=== PATIENT | male | born 1985 | race Caucasian/White ===

== ENCOUNTER 2020-03-14 12:56 | Emergency (ER) | payer BC, SELFPAY ==
[2020-03-14 12:57] VITALS: BP 110/82; PULSE 64; RESP 19; TEMP 36.5; O2SAT 100; BMI 28.4
--- NOTE | 2020-03-14 13:01 | ED.DCSUM_ITS ---
History of Present Illness Chief Complaint: Allergic Reaction Informant: Patient Onset: Hours - 1, or less Context: Sudden Onset - about 2-3 min after being stung back of right shoulder by a bee, pt thinks was a wasp Timing: Continuous Quality: shaky, sob, lightheaded Current Severity: Mild Maximum Severity: Severe Worsened by: nothing Relieved by: EMS epinephrine/solumedrol/benadryl Associated Symptoms: shaky all over now; thinks he passed out briefly after lying on bench Narrative: Patient was at home, stung by a bee outside, and then shortly thereafter had this reaction. He initially felt numbness and tingling on his tongue. He laid down on a bench after taking a dose of Benadryl that his parents gave him, and woke up with paramedics present, thinking he passed out. Initially there systolic blood pressure was 70, second check was 80 systolic. An IV was placed he was given IM epinephrine 1 mg in addition to Solu-Medrol 125 IV and Benadryl. At this time he feels better, just shaky all over. Denies any itching; shortness of breath is resolved, denies recent illness or injury. He has never had a reaction to a bee sting before. His dad is anaphylactic to bee stings. He is healthy otherwise and takes no prescriptions. Past Medical History - Allergies and Home Meds Allergies/Adverse Reactions: Allergies bee venom protein (honey bee) Allergy (Verified 03/14/20 13:00) Anaphylaxis Primary Care Physician: NOT,DEFINED [NON-STAFF] - Drugs: None Review of Systems General: Reports: Malaise, - - lightheaded. Denies: Chills, Fever, Sweats Eyes: Denies: Visual changes - bilaterally, Diplopia ENT: Reports: - - no trouble swallowing, no throat swelling. Denies: Rhinorrhea, Sore throat Cardiovascular: Denies: Chest pain, Palpitations Respiratory: Reports: Dyspnea. Denies: Cough, Dyspnea on exertion Gastrointestinal: Denies: Abdominal pain, Nausea, Vomiting, Diarrhea, Melena, Hematochezia Genitourinary: Denies: Dysuria, Hematuria, Frequency Musculoskeletal: Denies: Back pain, Swelling, Extremity Pain Skin: Reports: Rash - redness diffusely. Denies: Wounds Neurological: Reports: - - syncope. Denies: Headache, Weakness, Numbness Physical Exam Vital Signs/Narrative: Vital Signs Temp Pulse Resp BP Pulse Ox 03/14/20 12:57 97.7 F L 647 H 19 H 110/82 H 100 Inital Vital Signs reviewed: Yes General: Well nourished, Well developed, No Acute Distress - tremulous, conversive in full sentences Head: Normocephalic, Atraumatic Eyes: Perrl, EOMI ENT: Moist mucous membranes, No rhinorrhea Neck: Supple, Nontender, No lymphadenopathy Cardiovascular: Regular rate, Regular rhythm, No murmurs. Negative for: Tachyc ardia Respiratory: No distress, CTA bilaterally, Chest nontender, - - No stridor Abdomen: Soft, Nontender, Nondistended, Normal bowel sounds Back: Nontender, Normal Inspection Extremities: Nontender, No edema Skin: Normal color, No Trauma - Including with inspection of right periscapular area, no obvious sting site or areas of tenderness, Rash - Diffusely erythematous throughout entire body including face, not edematous Neurological: Alert, Oriented x3, Cranial nerves II-XII grossly intact, Normal Strength, Normal Sensation Psychological: Normal affect, Normal Mood Diagnostic/Tx/Re-eval - Medical Decision Making Initial blood pressure 110 systolic, we observe the patient. Excess blood pressure was in the 70s, so we bolused him with fluid, but clinically he did not feel worse she was feeling better continuously, so we continue to observe him without more epinephrine. His flushing improved, and his tremulousness also improved on several personal reevaluation as by myself over the first hour of his ED stay. For the next hour, he continued to feel better, and felt almost back to normal, just a little tired after being observed for 2 hours in the ER. I do not think he needs further boluses of epinephrine, or prescription for prednisone. He was given a prescription for EpiPen twin pack, and instructions for use and reasons to return. He and are comfortable with that plan. - Critical Care Time Critical care time (excluding procedures): 30-74 minutes - 35 minutes, Including time spent:, Discussing w/Patient &/or Family/Laundry Pricing Clerk, Performing Direct Patient Care at Bedside - And documentation ED Disposition - Plan for ED Patient: Disposition: Home or Assisted Living Diagnosis: Anaphylaxis due to hymenoptera venom Instructions: ED Anaphylaxis General Prescriptions: Epi Pen (for allergic rxn) 0.3 mg IM X1 PRN #2 syringe PRN Reason: Anaphylaxis Transmission Status: Pending to [id number] Referrals: Doctor,Your [STAFF PHYSICIAN] - As Needed
[2020-03-14] MEDS: 0.9% Normal Saline 1,000 ML 999 ML IV (13:34)
[2020-03-14 13:57] VITALS: BP 120/70; PULSE 73; RESP 18; O2SAT 100
[2020-03-14 14:00] VITALS: BP 120/70; PULSE 73; RESP 18; O2SAT 100
[2020-03-14 15:18] VITALS: BP 116/73; PULSE 65; RESP 18; O2SAT 98
== END 2020-03-14 15:19 | disposition home or self-care (01) ==
PROVIDERS: Emergency Provider Emergency Medicine
DX: T78.2XXA Anaphylactic shock, unspecified, initial encounter (principal); T63.441A Toxic effect of venom of bees, accidental (unintentional), initial encounter; R42 Dizziness and giddiness; X58.XXXA Exposure to other specified factors, initial encounter
CPT/HCPCS: 99285